=== PATIENT | male | born 1945 | race Caucasian/White ===

== ENCOUNTER 2023-07-23 15:36 | Emergency (ER) | payer MEDICARE, SELFPAY ==
[2023-07-23] VITALS (7 sets, daily range): BP systolic 140–192; BP diastolic 71–88; PULSE 60–68; RESP 13–20; TEMP 36.6; O2SAT 95–100; BMI 45.6
--- NOTE | 2023-07-23 15:43 | ECG_ITS ---
APPROVED REPORT Exam: Resting ECG HR:61 bpm ECG Measurements Heart Rate 61 AXES VA 263 P 75 QRSd 122 QRS 95 QT 411 T 64 QTc 414 Conclusion SINUS RHYTHM WITH FIRST DEGREE AV BLOCK WITH OCCASIONAL VENTRICULAR PREMATURE COMPLEXES BORDERLINE RIGHT AXIS DEVIATION [QRS AXIS > 90] MODERATE INTRAVENTRICULAR CONDUCTION DELAY [110+ ms QRS DURATION] ABNORMAL ECG Electronically signed by : SCOTT MURPHY, 07/23/2023 22:53:48
--- NOTE | 2023-07-23 15:58 | CT_ITS ---
PROCEDURE INFORMATION: Exam: CTA Neck With Contrast Exam date and time: 07/23/2023 5:05 PM Age: 77 years old Clinical indication: Dizziness and giddiness; Additional info: Lkn 0200, woke up with dizzy, balance issue TECHNIQUE: Imaging protocol: Computed tomographic angiography of the neck with contrast. Exam focused on the cervical segments of the vasculature. 3D rendering (Not supervised by radiologist): MIP and/or 3D reconstructed images were created by the technologist. Radiation optimization: All CT scans at this facility use at least one of these dose optimization techniques: automated exposure control; mA and/or kV adjustment per patient size (includes targeted exams where dose is matched to clinical indication); or iterative reconstruction. Contrast material: [id number]; Contrast volume: 100 ml; Contrast route: INTRAVENOUS (IV); COMPARISON: CT ANGIO HEAD 07/23/2023 5:05 PM FINDINGS: Limitations: Limited by artifact arising from metallic dental hardware/dental amalgam. Right common carotid artery: Calcification at the right common carotid bifurcation without hemodynamically significant stenosis. Right internal carotid artery: Calcification of the proximal right ICA. No hemodynamically significant stenosis. Right external carotid artery: No occlusion or stenosis of the origin. Left common carotid artery: Calcification involving the left common carotid artery without hemodynamically significant stenosis. Left internal carotid artery: Mild calcification of the proximal left internal carotid artery without hemodynamically significant stenosis. Left external carotid artery: No occlusion or stenosis of the origin. Right vertebral artery: Calcification at the origin of the right vertebral artery with moderate stenosis. Left vertebral artery: No stenosis. No dissection or occlusion. Aorta: Aortic calcification. Soft tissues: Normal. No significant soft tissue swelling. Bones/joints: There are degenerative changes involving the spine. IMPRESSION: 1. Calcification involving the origin of the right vertebral artery with moderate stenosis. 2. No hemodynamically significant stenosis involving the ICAs. REFERENCES: NASCET CRITERIA. The degree of stenosis in the cervical segment of the internal carotid artery is based on NASCET criteria. Normal is no stenosis. Mild is less than 50% stenosis. Moderate is 50-69% stenosis. Severe is 70% to 99% stenosis. Total occlusion is no detectable patent lumen.
--- NOTE | 2023-07-23 15:58 | CT_ITS ---
PROCEDURE INFORMATION: Exam: CTA Head With Contrast, Arteriography Exam date and time: 07/23/2023 5:05 PM Age: 77 years old Clinical indication: Dizziness and giddiness; Additional info: Lkn 0200, woke up with dizzy, balance issue TECHNIQUE: Imaging protocol: Computed tomographic angiography of the head with contrast. Exam focused on the arteries. 3D rendering (Not supervised by radiologist): MIP and/or 3D reconstructed images were created by the technologist. Radiation optimization: All CT scans at this facility use at least one of these dose optimization techniques: automated exposure control; mA and/or kV adjustment per patient size (includes targeted exams where dose is matched to clinical indication); or iterative reconstruction. Contrast material: ISOVUE 370; Contrast volume: 100 ml; Contrast route: INTRAVENOUS (IV); COMPARISON: CT HEAD/BRAIN WO CON 07/23/2023 5:02 PM FINDINGS: ANTERIOR CIRCULATION: Right internal carotid artery: Calcification involving the right carotid siphon without hemodynamically significant stenosis. Right middle cerebral artery: No occlusion or significant stenosis. No aneurysm. Right anterior cerebral artery: No occlusion or significant stenosis. No aneurysm. Left internal carotid artery: Calcification involving the left carotid siphon without hemodynamically significant stenosis. Left middle cerebral artery: No occlusion or significant stenosis. No aneurysm. Left anterior cerebral artery: No occlusion or significant stenosis. No aneurysm. POSTERIOR CIRCULATION: Right vertebral artery: No occlusion or significant stenosis. No aneurysm. Left vertebral artery: Calcification involving the left vertebral artery with mild stenosis. Basilar artery: No occlusion or significant stenosis. No aneurysm. Right posterior cerebral artery: No occlusion or significant stenosis. No aneurysm. Left posterior cerebral artery: No occlusion or significant stenosis. No aneurysm. IMPRESSION: No hemodynamically significant stenosis or large vessel occlusion.
--- NOTE | 2023-07-23 15:58 | CT_ITS ---
PROCEDURE INFORMATION: Exam: CT Head Without Contrast Exam date and time: 07/23/2023 5:02 PM Age: 77 years old Clinical indication: Dizziness; Additional info: Lkn 0200, woke up with dizzy, balance issue TECHNIQUE: Imaging protocol: Computed tomography of the head without contrast. Radiation optimization: All CT scans at this facility use at least one of these dose optimization techniques: automated exposure control; mA and/or kV adjustment per patient size (includes targeted exams where dose is matched to clinical indication); or iterative reconstruction. COMPARISON: No relevant prior studies available. FINDINGS: Brain: Age-related volume loss. Decreased attenuation of the supratentorial white matter is likely secondary to chronic microvascular ischemia. No acute intracranial hemorrhage, midline shift or intracranial mass effect. Cerebral ventricles: Ventriculomegaly is commensurate for degree of volume loss. Paranasal sinuses: Visualized sinuses are unremarkable. No fluid levels. Mastoid air cells: Visualized mastoid air cells are well aerated. Bones: Unremarkable. No acute fracture. Soft tissues: Unremarkable. IMPRESSION: No acute intracranial abnormality.
--- NOTE | 2023-07-23 15:59 | ED_ITS ---
Discharge Plan Disposition Patient Disposition: Home, Self-Care Condition: Good Prescriptions Prescriptions: New meclizine 25 mg tablet 25 mg PO TID PRN (Reason: dizziness) Qty: 20 0RF Referrals Follow up/Referrals: Isabel English APRN [Nurse Practitioner] - See instructions Activity Restrictions/Add. Instructions Additional Instructions/Restrictions: You were evaluated in the emergency department today. You have some incidental findings of narrowing of the blood vessels going to your brain, for which we recommend continuing aspirin and cholesterol medication therapy. Please follow- up closely with your primary care provider for this. You were diagnosed with vertigo. 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 Follow-up closely with your primary care provider. I have also provided you with information for ENT so that you may schedule follow-up with them as well to see if they can further help with your symptoms. Return to the emergency department for new or worsening symptoms. Clinical Impressions Clinical Impression: Vertigo, High blood pressure, Vertebral artery stenosis Instructions Patient Instructions: DI for Vertigo, DI for Benign Paroxysmal Positional Vertigo Discharge ED Provider: Izabella Spence General Adult HPI General Chief complaint: Dizziness Stated complaint: High BP Time Seen by Provider: 07/23/23 15:38 Mode of Arrival: EMS Source of Information: Patient and EMS Limitations: No Limitations Description of Symptoms (Recalled from ER Triage Doc. by RN): Patient brought in via EMS for complaints of high blood pressure and dizziness that started today. Patient states dizziness is mostly with changes of position. History of Present Illness HPI narrative: This patient is a 77-year-old male presenting to the emergency department for evaluation with concern for dizziness and high blood pressure at home. Patient reports that he went to bed around 2:00 in the morning and was completely normal, but he woke up this morning with dizziness. He states that whenever he has position changes, the room starts spinning. He also states that he feels like it takes more effort to walk. No vision changes, significant headache, numbness, tingling, weakness, facial droop, or other concerns. No chest pain or shortness of breath. He called EMS for evaluation, and EMS notes that he is hypertensive with blood pressure in the 190s. They noted his vitals otherwise reassuring. No other concerns or complaints at this time. Related Data Previous Rx's Medication Instructions Recorded meclizine 25 mg tablet 25 mg PO TID PRN dizziness #20 tabs 07/23/23 Allergies Allergy/AdvReac Type Severity Reaction Status Date / Time No Known Allergies Allergy Unverified 02/02/17 15:36 [facility] Disclaimer: The information contained in this section may have been updated after the patient was seen, as this information can be updated by other users. Social History Smoking Status: Former smoker alcohol intake: never current occupational status: retired Travel in the last 8 weeks: None ROS Obtained: Yes All systems reviewed & no additional complaints except as documented Physical Exam General General appearance: alert and in no apparent distress Head Head exam: atraumatic and normocephalic Eye Eye exam: Present normal appearance, PERRL, EOMI and nystagmus (Unidirectional horizontal nystagmus that is fatigable) ENT ENT exam: Present normal exam, normal oropharynx, mucous membranes moist and normal external ear exam Neck Neck exam: Present normal inspection, full ROM and trachea midline; Absent tenderness Chest Chest inspection: Present normal inspection and symmetric chest wall rise; Absent tenderness Respiratory Respiratory exam: Present normal lung sounds bilaterally; Absent respiratory distress, wheezes, stridor or accessory muscle use Cardiovascular Cardiovascular exam: Present regular rate and normal rhythm Abdominal Exam Abdominal exam: Present soft; Absent distention, tenderness or guarding Extremities Exam Extremities exam: Present normal inspection, full ROM and normal capillary refill; Absent tenderness or edema Back Exam Back exam: Present normal inspection and full ROM; Absent tenderness Neurological Exam Neurological exam: Present alert, oriented X3, CN II-XII intact and normal gait; Absent motor sensory deficit Expanded Neurological Exam Patient oriented to: Present person, place and time Speech: Present fluid speech Cranial nerves: Normal: EOM function (II, III, IV, ), facial sensation (V), facial palsy (VII), spinal accessory function (XI) and tongue deviation (XII) Cerebellar function: Normal: finger to nose and heel to gan Motor strength - LUE: 5/5 Motor strength - RUE: 5/5 Motor strength - LLE: 5/5 Motor strength - RLE: 5/5 Upper motor neuron exam: Normal: ender neglect Sensory exam upper extremity: Normal: light touch Sensory exam lower extremity: Normal: light touch Coma scale eye opening: Spontaneous Coma scale motor response: Obeys commands Coma scale verbal response: Oriented Coma scale total: 15 Psychiatric Psychiatric exam: Present normal affect and normal mood Skin Skin exam: Present warm and dry Medical Decision Making Medical Records Medical records reviewed: Yes I reviewed the patient's medical records. [place] Inquiry Pt receiving controlled substance: No Vital Signs: 07/23/23 15:37 07/23/23 15:40 07/23/23 16:01 Temperature 97.9 F Temperature Source Oral Pulse Rate 65 61 Pulse Rate [Right] 66 Respiratory Rate 20 19 Blood Pressure 192/86 H 157/78 H Blood Pressure [Right Arm] 192/86 H Blood Pressure Mean [Right Arm] 121 Blood Pressure Source Blood Pressure Source [Right Arm] Automatic Cuff 02 Sat by Pulse Oximetry 95 96 95 Oxygen Delivery Method Room Air 07/23/23 16:31 07/23/23 16:45 07/23/23 17:30 Temperature Temperature Source Pulse Rate 60 66 Pulse Rate [Right] Respiratory Rate 13 17 Blood Pressure 140/88 147/71 H 177/85 H Blood Pressure [Right Arm] Blood Pressure Mean [Right Arm] Blood Pressure Source Blood Pressure Source [Right Arm] 02 Sat by Pulse Oximetry 97 100 Oxygen Delivery Method 07/23/23 18:44 Temperature 97.9 F Temperature Source Oral Pulse Rate 68 Pulse Rate [Right] Respiratory Rate 18 Blood Pressure 152/81 H Blood Pressure [Right Arm] Blood Pressure Mean [Right Arm] Blood Pressure Source Automatic Cuff Blood Pressure Source [Right Arm] 02 Sat by Pulse Oximetry Oxygen Delivery Method Room Air Lab Data Lab results reviewed: Yes I reviewed the patient's lab results. Lab Results 07/23/23 15:45: WBC 7.3, RBC 4.81, Hgb 14.4, Hct 42.9, MCV 89.1, MCH 29.8, MCHC 33.5, RDW 14.3, Plt Count 213, MPV 8.7, Neut % (Auto) 69.0, Lymph % (Auto) 23.4, [place] % (Auto) 5.0, Eos % (Auto) 1.8, Baso % (Auto) 0.7, Neut # (Auto) 5.1, Lymph # (Auto) 1.7, [place] # (Auto) 0.4, Eos # (Auto) 0.1, Baso # (Auto) 0.1, Sodium 140, Potassium 4.4, Chloride 108 H, Carbon Dioxide 27, Anion Gap 9.4, BUN 27 H, Creatinine 1.30 H, Estimated Creat Clear 46, Estimated GFR 54 L, Est GFR ( Amer) 65, Glucose 132 H, Calcium 9.1, Total Bilirubin 0.9, AST 28, ALT 31, Alkaline Phosphatase 85, Troponin I < 0.01, Total Protein 6.9, Albumin 4.0, Globulin 2.9, Albumin/Globulin Ratio 1.4 07/23/23 16:10: PT 11.9, INR 1.11 H, APTT 23.6 07/23/23 15:45 07/23/23 15:45 Orders (Tests/Meds): ED MEDICATIONS Discontinued Medications Generic Name Dose Route Start Last Admin Trade Name Bonnie PRN Reason Stop Dose Admin Diazepam 5 mg 07/23/23 17:45 07/23/23 17:58 Diazepam 5mg Tablet PO 07/23/23 17:46 5 mg ONCE ONE Administration Iopamidol 100 ml 07/23/23 17:07 07/23/23 17:08 Iopamidol-370 (76%);100ml Bottle IV 07/23/23 17:08 100 ml ONCE ONE Administration Meclizine HCl 25 mg 07/23/23 15:58 07/23/23 16:14 Meclizine 25mg Tablet PO 07/23/23 15:59 25 mg ONCE ONE Administration Sodium Chloride 10 ml 07/23/23 17:07 07/23/23 17:08 Sodium Chloride 0.9% 10ml Syr (Rad Only) IV 07/23/23 17:08 10 ml ONCE ONE Administration Sodium Chloride 50 ml 07/23/23 17:07 07/23/23 17:08 0.9 % Sodium Chloride 50 Ml Vial IV 07/23/23 17:08 50 ml ONCE ONE Administration ORDERS Category Date Time Status CT angio head Stat Cat Scan 07/23/23 15:[address] angio neck Stat Cat Scan 07/23/23 15:[address] head/brain wo con Stat Cat Scan 07/23/23 15:58 Completed CBC w/Auto Diff [Complete Blood Count Auto Diff] Stat Lab 07/23/23 15:45 Completed CMP [Comprehensive Metabolic Panel] Stat Lab 07/23/23 15:45 Completed PT INR [Prothrombin Time INR] Stat Lab 06/07/24 16:10 Completed PTT [Activated Partial Thrombo Time] Stat Lab 07/23/23 16:10 Completed Trop I [Troponin I] Stat Lab 07/23/23 15:45 Completed ECG Data Tracing #1: I reviewed this ECG and interpreted as documented below: Sinus rhythm with a ventricular rate of 61 bpm. Patient appears to have second-degree type II block with ME interval of 263 ms and occasional dropped beat. I do not have prior ECG for comparison. No acute ST changes concerning for ischemia. ECG initial impression date: 07/23/23 ECG initial impression time: 15:44 Tracing #2: I reviewed this ECG and interpreted as documented below: Sinus bradycardia with a ventricular rate of 59 bpm. ME interval is 228 ms with a first-degree AV block. Occasional PACs. This EKG is not concerning for Mobitz type II as initially thought on initial EKG. I feel that his PACs are actually what made it seem more regular. ECG initial impression date: 07/23/23 ECG initial impression time: 16:11 Medical Decision Narrative: In summary, this patient is a 77-year-old male presenting to the Emergency Department for evaluation of high blood pressure readings at home and dizziness that he describes as vertigo. Differential diagnoses considered include but are not limited to CVA, intracranial hemorrhage, space-occupying lesion, dysrhythmia, BPPV, hypertensive urgency, hypertensive emergency. Ruling out the most morbid conditions drove assessment. It should be noted patient's history includes hypertension, hyperlipidemia which may or may not be at goal therapy. This complicates all aspects of care by increasing patient's risk for morbidity. I reviewed patient's past medical records and noted his medication list including losartan 5 mg, fenofibrate, atorvastatin, metoprolol 100 mg, ASA. Patient is not on anticoagulation. On exam, the patient is resting comfortably in bed in no acute distress. He is hypertensive with systolics in the 190s. He is neurologically intact with no discoordination or other concern. He does have horizontal unidirectional nystagmus which is reassuring for peripheral cause of vertigo. Workup included CT scans as well as CBC, CMP, troponin, PT, PTT, EKG. EKG is concerning for a Mobitz type II, and I do not have prior EKG available for comparison. Repeat EKG was obtained which was not related by motion artifact, and it appears to be a first-degree AV block with occasional PACs but I do not appreciate any concerns for Mobitz type II block on this one. I independently interpreted CT scans prior to the radiologist read and noted no acute stroke. Please see their read for final interpretation. They did note concerns for moderate vertebral artery stenosis, but no occlusion. I had an interactive discussion with neuroradiology at [facility] via the [facility] [facility] and they noted no large vessel occlusion. Labs were obtained that demonstrated concerning abnormalities. On reassessment, patient had some improvement after administration of meclizine, but he still feels dizzy. He was given Valium with continued improvement. He is able to ambulate throughout the emergency department. Neuroexam remained reassuring with no gait instability or discoordination. I feel that he likely has peripheral vertigo. I offered admission for management of symptoms given that he still feels dizzy, but patient states that he would rather try going home. He was given prescription for meclizine, instructions for close follow- up, and strict return precautions. For his cerebral vessel stenosis, he is already on aspirin and statin, so I advised him to continue following up outpatient for this as well as his blood pressure as well. Strict return precautions were given, and he was discharged after all questions were answered. Critical Care Critical Care Time Critical Care Time: No
[2023-07-23 16:06] LABS: Chloride 108 mmol/L (98-107); Sodium 140 mmol/L (136-145)
[2023-07-23 16:07] LABS: Potassium 4.4 mmoL/L (3.5-5.1)
[2023-07-23 16:09] LABS: Alanine Aminotransferase 31 U/L (12-78); Albumin/Globulin Ratio 1.4 (1.1-1.8); Alkaline Phosphatase 85 U/L (38-126); Anion Gap 9.4 mEq/L (5-15); Aspartate Amino Transferase 28 U/L (17-59); Bilirubin,Total 0.9 mg/dl (0.2-1.3); Blood Urea Nitrogen 27 mg/dl (9-20); Carbon Dioxide 27 mmol/L (22.0-30.0); Creatinine Clearance Estimated 46 mL/min (50-200); Estimated Glomerular Filt Rate 54 ml/min (>60); GFR (African American) 65 ML/MIN (>60); Globulin 2.9 g/dL (1.3-3.2); Total Protein,Serum 6.9 g/dl (6.3-8.2)
[2023-07-23 16:10] LABS: Calcium 9.1 mg/dl (8.4-10.2); Glucose 132 mg/dl (74-100)
--- NOTE | 2023-07-23 16:10 | ECG_ITS ---
APPROVED REPORT Exam: Resting ECG HR:59 bpm ECG Measurements Heart Rate 59 AXES SC 228 P 46 QRSd 127 QRS 95 QT 423 T 68 QTc 422 Conclusion SINUS BRADYCARDIA WITH FIRST DEGREE AV BLOCK WITH OCCASIONAL ECTOPIC PREMATURE COMPLEXES BORDERLINE RIGHT AXIS DEVIATION [QRS AXIS > 90] POSSIBLE INFERIOR MYOCARDIAL INFARCTION , PROBABLY OLD [30 ms Q WAVE IN II/aVF] ABNORMAL ECG Electronically signed by : SCOTT MURPHY, 07/23/2023 22:53:31
[2023-07-23] MEDS: MECLIZINE 25MG TABLET 25 MG PO (16:14)
[2023-07-23 16:21] LABS: Basophils # 0.1 K/mm3 (0-0.2); Basophils % 0.7 % (0.1-2.0); Eosinophils # 0.1 K/mm3 (0.0-0.4); Eosinophils % 1.8 % (0.1-12.0); Hematocrit 42.9 % (42.0-52.0); Hemoglobin 14.4 g/dL (14.1-18.0); Lymphocytes # 1.7 K/mm3 (0.7-4.5); Lymphocytes % 23.4 % (10-50); Mean Corpuscular HGB Conc 33.5 g/dL (31.8-35.4); Mean Corpuscular Hemoglobin 29.8 pg (27.0-31.2); Mean Corpuscular Volume 89.1 fl (80-94); Mean Platelet Volume 8.7 fl (7.4-10.4); Monocytes # 0.4 K/mm3 (0.1-1.0); Neutrophils # 5.1 K/mm3 (1.8-7.8); Platelet Count 213 K/mm3 (142-424); Red Blood Count 4.81 M/mm3 (4.60-6.20); Red Cell Distribution Width 14.3 % (11.5-17.5); White Blood Count 7.3 K/mm3 (4.8-10.8)
[2023-07-23 16:23] LABS: Troponin I < 0.01 ng/ml (0.00-0.034)
[2023-07-23 16:48] LABS: Activated Partial Thrombo Time 23.6 seconds (22.8-30.6); INR 1.11 (0.9-1.1); Prothrombin Time 11.9 seconds (10.1-12.5)
[2023-07-23] MEDS: 0.9 % SODIUM CHLORIDE 50 ML VIAL IV (17:08)
[2023-07-23] MEDS: SODIUM CHLORIDE 0.9% 10ML SYR (RAD ONLY) 10 ML IV (17:08)
[2023-07-23] MEDS: IOPAMIDOL-370 (76%);100ML BOTTLE 100 ML IV (17:08)
--- NOTE | 2023-07-23 17:45 | PC.NURSE ---
ambulated with walker states he feels good to go home, calling his brother to bring a walker to his house.
[2023-07-23] MEDS: diazePAM 5MG TABLET 5 MG PO (17:58)
== END 2023-07-23 19:38 | disposition home or self-care (01) ==
PROVIDERS: Emergency Provider Emergency Medicine; PCP Family Medicine
DX: I65.01 Occlusion and stenosis of right vertebral artery (principal); I10 Essential (primary) hypertension; R42 Dizziness and giddiness; I44.0 Atrioventricular block, first degree; I49.1 Atrial premature depolarization; R00.1 Bradycardia, unspecified; Z87.891 Personal history of nicotine dependence
CPT/HCPCS: 70450; 70496; 70498; 80053; 84484; 85025; 85610; 85730; 93005; 99285; Q9967